=== PATIENT | female | born 1970 | race Caucasian/White ===

== ENCOUNTER 2021-03-24 11:02 | Emergency (ER) | payer OTHER, SELFPAY ==
[2021-03-24 12:31] VITALS: BP 130/82; PULSE 90; RESP 18; TEMP 37.1; O2SAT 97
--- NOTE | 2021-03-24 12:36 | ED.URI ---
HPI - URI/Sore Throat General Chief Complaint: Upper Respiratory Infection Stated Complaint: Headache,Cough,Chest Congestion,Chills Source: patient and RN notes reviewed Limitations: no limitations History of Present Illness HPI Narrative: The obese patient, a non-smoker/nondrinker presents with 1/2-week history of congestion, cough, myalgias with headache. No fever measured, earache, vomiting/diarrhea, loss of taste/smell, CP, rash, S OB. Symptoms are mild slightly worse at night when sleeping/supine. Jnezg-zo-wazy testing for Covid is strongly positive Related Data Home Medications Medication Instructions Recorded Confirmed citalopram 20 mg PO DAILY 03/24/21 03/24/21 Allergies Allergy/AdvReac Type Severity Reaction Status Date / Time codeine Allergy Intermediate Hives / Verified 03/24/21 12:31 Red Face Review of Systems Review of Systems: General/Constitutional: No weight loss,fever Eyes: N0: Redness,discharge Ears/Nose/Throat: No: Epistaxis,ear discharge Respiratory: Denies: Hemoptysis Gastrointestinal: No Vomiting, Bleeding-rectal Skin: No Lumps, eruption Neurologic: No Focal Weakness,Sz Hematologic: Denies: Petechiae/Purpura Psychiatric: No: Suicida ideationl All Other Systems: Reviewed and Negative PMFSH Comments At time of signature, agree with nursing past medical, surgical, social and family history. There is no relevant family history pertinent to the presenting complaint Exam Narrative: General Appearance: Well appearing, Well nourished EYE: PERRLA, Conjunctiva clear Ears: Auditory canal normal, TM normal Nose: Rhinorrhea, Mucousal erythema Mouth/Throat: MM moist, Uvula midline, Pharyngeal erythema Neck: Supple, No adenopathy Respiratory: No respiratory distress, Breath sounds equal, Clear to auscultation Cardiovascular: RRR, No JVD Musculoskeletal: Non tender, Normal strength Skin: Warm, Dry Neurological: A&O x3, CN II-XII intact Psychiatric: Normal mood, Normal affect Course Vital Signs Vital signs: Vital Signs Temperature 98.8 F 03/24/21 12:31 Pulse Rate 90 03/24/21 12:31 Respiratory Rate 18 03/24/21 12:31 Blood Pressure 130/82 03/24/21 12:31 Pulse Oximetry 97 03/24/21 12:31 Temperature 98.8 F 03/24/21 12:31 Pulse Rate 90 03/24/21 12:31 Respiratory Rate 18 03/24/21 12:31 Blood Pressure 130/82 03/24/21 12:31 Pulse Oximetry 97 03/24/21 12:31 MDM - URI/Sore Throat Lab Data Labs: Lab Results 03/24/21 Range/Units 12:10 POC SARS CoV-2 Ag Positive (Negative) Discharge Plan Discharge Clinical Impression: COVID-19 Patient Disposition: Home, Self-Care Condition: Stable Instructions: COVID-19 (Coronavirus Disease 2019) (ED) Additional Instructions: Take vitamins D, C, B and zinc supplements Isolate for 10 days, quarantine close family contacts Consider getting pulse oximetry and return to hospital for walking pulse ox less than 94% Considering call PMD for monoclonal antibodies if not better Consider reviewing Dr Pearl 'If you get Covid' You may take OTC preparations like Motrin, Flonase, honey-based cough syrups, etc. Prescriptions: New lidocaine HCl [Lidocaine Viscous] 2 % solution 5 ml MUCOUS MEM QID PRN (Reason: pain) Qty: 100 RF: 0 codeine-guaifenesin 10-100 mg/5 mL liquid 7.5 ml PO Q6H PRN (Reason: cough) Qty: 118 RF: 0 aspirin [Aspirin Low Dose] 81 mg tablet,delayed release (DR/EC) 81 mg PO DAILY Qty: 30 RF: 0 No Action citalopram 20 mg tablet 20 mg PO DAILY RF: 0 Follow-up/Referrals: PHYSICIAN,CERAMICS TECHNICIAN [Primary Care Provider] - Stand Alone Forms: Work/School Release IP
== END 2021-03-24 13:05 | disposition home or self-care (01) ==
PROVIDERS: Emergency Provider Emergency Medicine
DX: U07.1 COVID-19 (principal); F41.9 Anxiety disorder, unspecified
CPT/HCPCS: 87426; 99213; C9803; G0463

== ENCOUNTER 2021-03-30 14:55 | Emergency (ER) | payer OTHER, SELFPAY ==
--- NOTE | ~2021-03-30 | XR_ITS ---
EXAMINATION: XR chest 1V portable DATE: 03/30/2021 15:20 INDICATION: COVID positive presenting with shortness of breath, sweating and dizziness. TECHNIQUE: frontal view of the chest was obtained. COMPARISON: None FINDINGS: Linear bandlike opacity in the right lower lung zone most consistent with discoid atelectasis. More s ubtle opacities at the left lung base which could represent additional atelectasis or pneumonia. No p leural effusion or pneumothorax. The cardiomediastinal silhouette is normal. Visualized bones and sof t tissues are unremarkable. IMPRESSION: 1. Bibasilar opacities most likely atelectasis although cannot exclude mild pneumonia. Reviewed, dictated and finalized at location [facility]. IMPRESSION: 1. Bibasilar opacities most likely atelectasis although cannot exclude mild pne umonia.
[2021-03-30 14:58] VITALS: BP 144/92; PULSE 113; RESP 16; TEMP 37; O2SAT 96
--- NOTE | 2021-03-30 17:18 | ED.URI ---
HPI - URI/Sore Throat General Chief Complaint: Upper Respiratory Infection Stated Complaint: COVID + DOESN'T FEEL WELL Time Seen by Provider: 03/30/21 17:05 Source: patient Mode of arrival: ambulatory Limitations: no limitations History of Present Illness HPI Narrative: This is a 50-year-old female who is Covid positive who presents to the emergency department for feeling generally unwell. Reports nausea, headache, cough and fever. She tested positive on the 9 of this month. Reports she has been symptomatic for about 2 weeks. She is not vaccinated. Denies chest pain or shortness of breath. Related Data Home Medications Medication Instructions Recorded Confirmed citalopram 20 mg PO DAILY 03/24/21 03/24/21 Allergies Allergy/AdvReac Type Severity Reaction Status Date / Time codeine Allergy Intermediate Hives / Verified 03/24/21 12:31 Red Face Review of Systems Review of Systems: CONSTITUTIONAL: Reports fever ENT: Reports rhinorrhea, congestion CARDIOVASCULAR: Denies chest pain RESPIRATORY: Reports cough. Denies dyspnea. GASTROINTESTINAL: Reports nausea. Denies abdominal pain, vomiting All systems reviewed & are unremarkable except as noted in HPI and below PMFSH Past Medical History Medical History (Updated 03/30/21 @ 20:12 by Ashlyn Arshad PA-C) History of anxiety Social History Social History (Updated 03/30/21 @ 17:37 by Ashlyn Arshad PA-C) Substance use: never Exam Narrative: GENERAL: Well-appearing, well-nourished, and in no acute distress. HEAD: Normocephalic, atraumatic. EYES: PERRLA and EOMI. ENT: Nares clear, no rhinorrhea or epistaxis. Mucous membranes moist. Oropharynx without tonsillar hypertrophy exudate or other lesions. Bilateral TMs pearly jacobs non-bulging NECK: Supple. No adenopathy or masses. CHEST: Clear to auscultation. No respiratory distress. No wheezes rales or rhonchi HEART: Regular rate and rhythm. No murmur heard. Normal peripheral pulses. EXTREMITIES: Normal range of motion. No edema. SKIN: Warm, dry, no rash. NEURO: No focal deficits. Alert and oriented x3. Cranial nerves II through XII grossly intact PSYCH: Normal mood and affect Course Vital Signs Vital signs: Vital Signs Temperature 98.6 F 03/30/21 14:58 Pulse Rate 113 H 10/15/21 14:58 Respiratory Rate 16 03/30/21 14:58 Blood Pressure 144/92 H 03/30/21 14:58 Pulse Oximetry 96 03/30/21 14:58 Temperature 98.6 F 03/30/21 14:58 Pulse Rate 91 03/30/21 17:22 Respiratory Rate 18 03/30/21 17:22 Blood Pressure 155/99 H 03/30/21 17:22 Pulse Oximetry 97 03/30/21 17:22 MDM - URI/Sore Throat MDM Narrative Medical decision making narrative: Patient presents to the emergency department with positive Covid test, feeling generally unwell. Mildly tachycardic upon arrival, this normalized with IV fluid hydration. Oxygen saturation has remained normal on room air. She does not have any chest pain or shortness of breath. She is not vaccinated. She is afebrile and nontoxic-appearing. Laboratory findings are consistent with Covid infection. No concerning changes. Chest x-ray shows bibasilar opacities which are most likely atelectasis. Patient was updated on case findings. She reports improvement with migraine cocktail. Unfortunately patient is now out of the window for monoclonal antibody infusion. I will give her primary doctor for follow-up. She was given warnings to return to the ER Lab Data Attestation: I reviewed the patient's lab results. Result diagrams: 03/30/21 19:05 03/30/21 19:05 Labs: Lab Results 03/30/21 03/30/21 Range/Units 19:05 19:05 WBC 4.0 L (4.5-10.0) K/mm3 RBC 4.59 (4.2-5.4) M/mm3 Hgb 13.1 (12.0-15.0) g/dL Hct 40.0 (37.0-47.0) % MCV 87.1 (80-100) fl MCH 28.5 (26-34) pg MCHC 32.8 (32-36) g/dl RDW 14.6 H (11.5-14.5) % Plt Count 145 L (150-375) k/mm3 MPV 10.2 (7.4-10.4) fl [employer]
[2021-03-30 17:22] VITALS: BP 155/99; PULSE 91; RESP 18; O2SAT 97
[2021-03-30] MEDS: diphenhydrAMINE HCl INJ 50 MG/ML VIAL 25 MG IV PUSH (17:43)
[2021-03-30] MEDS: KETOROLAC 30 MG/ML VIAL (*BKC) IV PUSH (17:44)
[2021-03-30] MEDS: METOCLOPRAMIDE HCL INJ 10 MG/2 ML VIAL IV PUSH (17:44)
[2021-03-30] MEDS: SODIUM CHLORIDE 0.9% IV 500 ML 999 ML IV CONT (17:45)
[2021-03-30 19:15] LABS: Hemoglobin 13.1 g/dL (12.0-15.0); Immature Granulocyte Absolute 0.02 K/mm3 (0.00-0.031); Immature Granulocyte Percent A 0.5 % (0-0.5); Lymphocytes Absolute Auto 0.76 K/mm3 (0.9-3.2); Lymphocytes Percent Auto 19.2 % (18.3-44.2); Mean Corpuscular HGB Conc 32.8 g/dl (32-36); Mean Corpuscular Hemoglobin 28.5 pg (26-34); Mean Corpuscular Volume 87.1 fl (80-100); Mean Platelet Volume 10.2 fl (7.4-10.4); Monocytes Absolute Auto 0.1 K/mm3 (0.1-0.6); Monocytes Percent Auto 2.5 % (2.6-8.5); Neutrophils Absolute Auto 3.1 K/mm3 (1.3-6.7); Neutrophils Percent Auto 77.8 % (45.5-73.1); Platelet Count Result 145 k/mm3 (150-375); Red Blood Count 4.59 M/mm3 (4.2-5.4); Red Cell Distribution Width 14.6 % (11.5-14.5)
[2021-03-30 19:25] LABS: Alanine Aminotransferase 38 U/L (4-35); Albumin Level 3.8 g/dL (3.5-5.1); Alkaline Phosphatase 88 U/L (38-126); Anion Gap 8 mmol/L (8-16); Aspartate Amino Transferase 43 U/L (14-36); Bilirubin,Total 0.2 mg/dL (0.2-1.3); Blood Urea Nitrogen 7 mg/dL (7-17); Calcium 7.7 mg/dL (8.4-10.2); Carbon Dioxide 25 mmol/L (22-30); Chloride 102 mmol/L (98-107); Estimated Glomerular Filt Rate > 60; Glucose 118 mg/dL (65-110); Lipase 106 U/L (23-300); Potassium 3.6 mmol/L (3.4-5.0); Sodium 135 mmol/L (137-145)
[2021-03-30 20:04] LABS: Hypochromasia 1+ (NORMAL); Ovalocytes 1+ (NORMAL)
== END 2021-03-30 20:34 | disposition home or self-care (01) ==
PROVIDERS: Physician Assistant; Emergency Provider Emergency Medicine
DX: U07.1 COVID-19 (principal); R51.9 Headache, unspecified; F41.9 Anxiety disorder, unspecified
CPT/HCPCS: 36415; 71045; 80053; 83690; 85025; 96365; 96375; 99284; J0131; J1200; J1885; J2765; J7040

== ENCOUNTER → 2021-06-21 08:20 | Outpatient (CLI) | payer OTHER, SELFPAY ==
--- NOTE | ~2021-06-21 | US_ITS ---
US abdomen complete DATE: 06/21/2021 08:54 INDICATION: Right upper quadrant abdominal pain. History of cholecystectomy. TECHNIQUE: Real-time imaging of the abdomen, Doppler analysis COMPARISON: None FINDINGS: There is surgical absence of the gallbladder. There is fatty change of the liver. No hepatic space-occupying mass lesion is evident. There is limit ed penetration of the liver however due to the fatty infiltration. CT examination would be more sensi tive for detection of liver lesions. Normal hepatopedal portal venous flow direction. Pancreatic tail visualization is limited by overlying bowel gas. CT examination would be more helpful for the pancreas is well. The common bile duct measures 4.4 mm, normal. Right kidney measures 12.5 cm length, the left kidney 11.5 cm length. No renal mass lesion or hydrone phrosis is detected. Normal splenic size. The abdominal aorta is of normal caliber. The IVC is unremarkable. IMPRESSION: Hepatic steatosis Limited visualization of the liver and pancreas due to hepatic steatosis and bowel interference; cons ider CT abdomen examination for more definitive evaluation of the liver and pancreas Reviewed, dictated and finalized at [facility]. Reviewed, dictated and finalized at location A. [employer] IMPRESSION: Hepatic steatosis Limited visualization of the liver and pancreas due to hepatic steatosis and marisela wel interference; consider CT abdomen examination for more definitive evaluatio n of the liver and pancreas
== END ==
PROVIDERS: PCP Physician Assistant; Visit Provider Physician Assistant
DX: R10.11 Right upper quadrant pain (principal); K76.0 Fatty (change of) liver, not elsewhere classified
CPT/HCPCS: 76700

== ENCOUNTER → 2021-06-28 09:56 | Outpatient (CLI) | payer OTHER, SELFPAY ==
--- NOTE | ~2021-06-28 | CT_ITS ---
EXAMINATION: CT abdomen w con DATE: 06/28/2021 10:39 INDICATION: Right upper quadrant abdominal pain. TECHNIQUE: Computed tomography (CT) of the abdomen was performed with 100 mL Omnipaque 350 intravenou s contrast. Automated exposure control and iterative reconstruction technique were employed. The dose -length product was 831.61 mGy-cm. COMPARISON: Abdomen ultrasound 06/21/2021 FINDINGS: The visualized portions of the lung bases demonstrate mild atelectasis. A calcified left stefanie ng nodule is consistent with old granulomatous disease. No pleural effusion. The heart size is normal . No pericardial effusion. There is diffuse hepatic steatosis. There are 1.7 cm and 0.8 cm hyperdense masses in segment VIII of the liver. Calcifications in the spleen are consistent with old granulomat ous disease. There are changes of cholecystectomy. The pancreas, adrenal glands, and kidneys are norm al. There is diverticulosis of the colon without evidence of diverticulitis. There are no dilated loo ps of bowel. There are no pathologically enlarged lymph nodes. There is no free intraperitoneal fluid . There is moderate thoracic spondylosis and severe lumbar spondylosis. IMPRESSION: 1. Two hyperdense liver masses measuring up to 1.7 cm. In the absence of known malignancy or chronic liver disease, these findings are most likely hemangiomas or focal nodular hyperplasia. Abdomen MRI w ithout and with contrast is recommended. 2. Diffuse hepatic steatosis. Reviewed, dictated and finalized at location B. [employer]ILDER IMPRESSION: 1. Two hyperdense liver masses measuring up to 1.7 cm. In the absence of known malignancy or chronic liver disease, these findings are most likely hemangiomas or focal nodular hyperplasia. Abdomen MRI without and with contrast is recomme nded. 2. Diffuse hepatic steatosis.
== END ==
PROVIDERS: PCP Physician Assistant; Visit Provider Physician Assistant
DX: R10.11 Right upper quadrant pain (principal); K57.30 Diverticulosis of large intestine without perforation or abscess without bleeding; K76.0 Fatty (change of) liver, not elsewhere classified; M47.815 Spondylosis without myelopathy or radiculopathy, thoracolumbar region
CPT/HCPCS: 74160; Q9967

== ENCOUNTER → 2022-03-14 06:54 | Outpatient (CLI) | payer OTHER, SELFPAY ==
--- NOTE | ~2022-03-14 | MR_ITS ---
EXAMINATION: MR knee RT wo con DATE: 03/14/2022 07:29 INDICATION: Right knee pain TECHNIQUE: Magnetic resonance imaging (MRI) of the right knee was performed without intravenous contr ast. Sequences included coronal PD-weighted FSE, coronal PD-weighted FS FSE, sagittal T2-weighted FS E, sagittal PD-weighted FS FSE and axial PD weighted fat saturated FSE. COMPARISON: None. FINDINGS: Medial compartment: 1.5 x 1.4 cm region of full/near full-thickness chondral ulceration without degenerative subchondral changes at the anterior weightbearing medial femoral condyle. Juxtaposed 11 x 9 mm region of addition al deep chondral ulceration at the anterior aspect of the medial tibial plateau with underlying marro w edema-like signal change. Cartilage in the medial compartment appears otherwise relatively preserve d. Small to moderate-sized marginal osteophytes along both the medial tibial plateau and medial femor al condyle. Lateral compartment: Lateral meniscus is normal. Chondral surface regularity with partial-thickness fissuring which appear s to involve less than 50% the cartilage thickness at the anterior weightbearing lateral femoral cond yle and at the central to posterior aspect of the lateral tibial plateau. Additional small to moderat e size marginal osteophytes are present. Patellofemoral compartment: Extensive full and near full-thickness chondral ulceration with underlying cortical irregularity and subarticular edema-like signal change involving much of the lateral patellar facet and apical ridge a s well as the juxtaposed lateral trochlea. Less severe partial thickness chondral fissuring without d egenerative subchondral changes at the medial patellar facet, trochlear groove and medial trochlea. Ligaments and tendons: Anterior and posterior cruciate ligaments are normal. The fibular collateral ligament complex is norm al. Mild thickening of the proximal medial collateral ligament without surrounding edema consistent w ith likely mild scarring related to chronic sprain. The extensor mechanism is normal. The visualized medial and lateral hamstring tendons as well as the iliotibial band are normal. Fluid: Small right knee joint effusion with scattered mild synovitis at the suprapatellar pouch. No loose os teochondral bodies identified. Osseous/other: 5 mm lateral patellar subluxation. No fracture or pathologic marrow replacing process. 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 Reviewed, dictated and finalized at location A. IMPRESSION: Tricompartmental osteoarthritis, moderate to severe with extensive high-grade c hondral malacia the lateral aspect of the patellofemoral compartment, mild to m oderate with additional moderate and high-grade chondral malacia atrial in the medial compartment and mild with moderate grade chondromalacia in the anterior lateral compartment.
== END ==
PROVIDERS: PCP Physician Assistant; Visit Provider Specialist
DX: M17.11 Unilateral primary osteoarthritis, right knee (principal)
CPT/HCPCS: 73721